=== PATIENT | female | born 1995 | race Caucasian/White ===

== ENCOUNTER 2017-09-06 17:39 | Emergency (ER) | payer SELFPAY ==
--- NOTE | 2017-09-06 19:14 | EDPHY ---
General Initial Vital Signs: Initial Vital Signs Temperature (C) 37.0 C 09/06/17 18:03 Heart Rate 88 09/06/17 18:03 Respiratory Rate 18 09/06/17 18:03 Blood Pressure 111/71 09/06/17 18:03 O2 Sat (%) 97 09/06/17 18:03 O2 Delivery Mode Room Air Allergies/Adverse Reactions: No Known Allergies Allergy (Unverified 09/06/17 18:02) Home Medications: Medication Instructions Recorded NK [No Known Home Meds] 09/06/17 Departure - Departure Referrals: NONE *PRIMARY CARE P,. [Primary Care Provider] - As per Instructions
--- NOTE | 2017-09-06 19:20 | EDPHY ---
H & P Stated Complaint: [facility] [facility] [place]ROS: Chief complaint: Left arm injury History of present illness: This is a 22-year-old female who presents to the emergency department for a left arm injury. Patient was snowboarding earlier today when she fell onto the arm injuring it. Since then she has had pain. She has noted a deformity. Worse with movement. She went to urgent care, x- rays were taken and she was sent here for orthopedic evaluation. She does state the entire arm feels numb. She denies open wounds. She denies abnormal coolness to the arm. No other trauma reported. - Personal History LMP (Females 10-55): Unknown - Medical/Surgical History Hx Asthma: No Hx Chronic Respiratory Disease: No Hx Diabetes: No Hx Cardiac Disease: No Hx Renal Disease: No Hx Cirrhosis: No Hx Alcoholism: No Hx HIV/AIDS: No Hx Splenectomy or Spleen Trauma: No Other PMH: denies - Social History Smoking Status: Never smoked - Physical Exam Exam: General: Alert, nontoxic Skin: No open wounds to the left arm Musculoskeletal: Deformity of the left forearm. She can move the digits and wrist although this causes pain. She can move elbow although this causes pain. Vascular: Radial pulses 2+. Capillary refill brisk in all digits of the left hand. Neurologic: Patient reports numbness throughout the arm although when I touch it she reports she can feel me touching it. Constitutional: Initial Vital Signs Temperature (C) 37.0 C 09/06/17 18:03 Heart Rate 88 09/06/17 18:03 Respiratory Rate 18 09/06/17 18:03 Blood Pressure 111/71 09/06/17 18:03 O2 Sat (%) 97 09/06/17 18:03 O2 Delivery Mode Room Air Allergies/Adverse Reactions: No Known Allergies Allergy (Unverified 09/06/17 18:02) Home Medications: Medication Instructions Recorded Hydrocodone/APAP 5/325 [Omro 1 tab PO Q6H #12 tab 09/06/17 5/325 (*)] Medical Decision Making - Diagnostics Imaging: I viewed and interpreted images myself Procedures: Procedure: Splint placement. A sugar-tong splint was applied. After application of the splint I returned and re-examined the patient. The splint was adequately immobilizing the joint and distal to the splint the patient's circulation and sensation was intact. ED Course/Re-evaluation: Patient seen under the supervision of my secondary supervising physician Dr. Keyon Olvera. Patient presents to the emergency department for a left arm injury. Outpatient x-rays are reviewed by myself and show a midshaft radius and ulnar fracture. She has been seen by Orthopedics, Dr. Simpson. He is comfortable with patient being splinted, discharged home to following up in clinic. Home care is discussed. Return precautions are given. Differential Diagnosis: Included but not limited to contusion, sprain or strain, bony fracture, joint dislocation - Data Points Medications Given: Discontinued Medications Hydromorphone HCl (Dilaudid) 1 mg IVP EDNOW ONE Stop: 09/06/17 19:52 Last Admin: 09/06/17 19:59 Dose: 1 mg Sodium Chloride (Ns) 1,000 mls @ 0 mls/hr IV EDNOW ONE; Wide Open PRN Reason: Protocol Stop: 09/06/17 19:52 Last Admin: 09/06/17 19:58 Dose: 1,000 mls Departure - Departure Disposition: Home, Routine, Self-Care Clinical Impression: Forearm fracture Qualifiers: Encounter type: initial encounter Fracture type: closed Laterality: right Qualified Code(s): S52.91XA - Unspecified fracture of right forearm, initial encounter for closed fracture Condition: Good Instructions: Arm Fracture in Adults (ED) Additional Instructions: Follow-up with orthopedics this week for continued evaluation as discussed In regards to pain control see the following: Use ibuprofen [600] mg [3] times a day for the next 2-3 days for pain In addition You have been prescribed [Omro] for pain. [Omro] contains Tylenol, do not take extra Tylenol/acetaminophen/Apap with it. It is sedating. If symptoms worsen or new symptoms develop return to the emergency room for recheck Referrals: NONE *PRIMARY CARE P,. [Primary Care Provider] - As per Instructions Joe Simpson MD [Medical Doctor] - As per Instructions Prescriptions: Hydrocodone/APAP 5/325 [Omro 5/325 (*)] 1 tab PO Q6H #12 tab
[2017-09-06] MEDS ORDERED: NS 1,000 ML IV ONE (19:51)
[2017-09-06] MEDS ORDERED: HYDROmorphONE/DILAUDID 1 MG/ML INJ IVP ONE (19:51)
[2017-09-06] MEDS ORDERED: HYDROCOD/APAP 5/325 PREPACK#6 BTL TAKEHOME ONE (21:38)
[2017-09-06 22:06] VITALS: BP 116/61; PULSE 88; RESP 14; TEMP 98.1; O2SAT 95
--- NOTE | 2017-09-06 22:30 | GCON ---
[f rep st] CONSULTATION EMERGENCY DEPARTMENT CONSULTATION DATE OF CONSULTATION: 09/06/2017 REASON FOR CONSULTATION: Left both-bone forearm fracture. HISTORY: The patient is a 22-year-old, who was snowboarding earlier today at [facility]. S he fell awkwardly backwards. She believes her body weight may have fallen on top of her arm. She murguia d severe arm discomfort and a deformity. She was seen in the clinic at [facility] and [facility] with a presumed forearm fracture. She initially went to an urgent care facility. At the urgent care facility, they x-rayed her and revealed a both-bone forearm fracture [facility] Otherwise, the patient indicates she is in good health. She does not have any current or past signif icant medical problems. 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 She indicates she is a nonsmoker, a limi roly alcohol user, non recreational drug user. REVIEW OF SYSTEMS: Otherwise unremarkable. PHYSICAL EXAMINATION: EXTREMITIES: The left arm has a slight apex volar angular deformity. She has normal capillary refill of all digits of 2 seconds or less. She has normal light touch sensation in the radial, median, and ulnar nerve distributions. However, describes subjective slight loss of sen sation in the median nerve distribution. Her two-point discrimination is 5 mm at the finger pulps of all digits including those innervated by the median nerve. There are no skin breaks or lesions note d about the forearm. I have reviewed the x-rays that were taken at outside facility. These were uploaded to the [facility] [employer] at [facility], but I had to review these on a cellphone from the sending urgent care facility. These demonstrate a midshaft both-bone forearm fracture with the ulna fracture slightly di stal to the radius at the mid aspect of the diaphysis. There is bayonet apposition of the radius and angular deformity of the ulna. I had a long discussion with the patient about the treatment possibilities. This needs operative dru atment. It would work out slightly better for her to do this as an outpatient from a cost standpoint , as much as she is uninsured. She felt that she was comfortable enough to go home with her forearm fracture once it was satisfactorily splinted, and will address this as an outpatient later this week. She was given my contact and followup information such that we may organize this as noted above. /[id number]/MODL
== END 2017-09-06 22:05 | disposition home or self-care (01) ==
DX: S52.92XA Unspecified fracture of left forearm, initial encounter for closed fracture (principal); E86.9 Volume depletion, unspecified; V00.311A Fall from snowboard, initial encounter; Y99.8 Other external cause status; Y93.23 Activity, snow (alpine) (downhill) skiing, snowboarding, sledding, tobogganing and snow tubing
CPT/HCPCS: 96374; J1170